=== PATIENT | male | born 1930 | race Caucasian/White ===

== ENCOUNTER → 2017-09-12 | Outpatient (CLI) | payer MEDICARE, OTHER ==
[~2017-09-12] MED LIST: ADULT LOW DOSE81 MG PO; CENTRUM COMPLE1 EACH PO; CIPROFLOXACIN500 M1 PO; COZAAR100 MG PO; DILTIAZEM 24HR240 M1 PO; FAMCICLOVIR500 MG PO; FOLIC ACID1 MG PO; HYDROCODONE-AP1 EAC6 PO; LEVAQUIN 250 M250 MG PO; LOSARTAN; NEXIUM5 MG; PREDNISONE 20 M20 MG PO; SODIUM BICARBO650 M3 PO; SUPER B COMPLE150 MG PO; ZANTAC 150MG T150 M1 PO; [UNRECOGNIZED DRUG - REMARK]
[2017-09-12 12:05] VITALS: BP 166/59
[2017-09-12 12:18] LABS: HEMATOCRIT 29.2 % (42.0-52.0); HEMOGLOBIN 9.3 gm/dL (14.0-18.0)
[2017-09-12 13:08] VITALS: BP 163/63
--- NOTE | 2017-09-12 18:12 | NUR ---
ARRIVED AMBULATORY. MADE SELF COMFORTABLE IN RECLINER. DENIES ADVERSE REACTION TO MULTIPLE INJECTIONS OF SAME. INJECTION COMPLETED AND TOLERATED WELL. DENIES NEEDS AT DISCHARGE.
== END ==
LOC: M.INFUS 11:55
PROVIDERS: Internal Medicine Nephrology
DX: N18.4 Chronic kidney disease, stage 4 (severe) (principal); D63.1 Anemia in chronic kidney disease

== ENCOUNTER → 2017-09-26 | Outpatient (CLI) | payer MEDICARE, OTHER ==
[2017-09-26 12:15] VITALS: BP 160/59
--- NOTE | 2017-09-26 12:38 | NUR ---
ARRIVED AMUBLATORY. MADE SELF COMFORTABLE. DENIES ADVERSE REACTION TO PRIOR INJECTION OF SAME. PER STANDING ORDER NO LABS NEEDED TODAY. INJECTION COMPLETED AND TOLERATED WELL. DENIES QUESTIONS OR NEEDS AT DISCHARGE.
== END ==
LOC: M.INFUS 04:47
DX: N18.4 Chronic kidney disease, stage 4 (severe) (principal); D63.1 Anemia in chronic kidney disease

== ENCOUNTER → 2017-10-10 | Outpatient (CLI) | payer MEDICARE, OTHER ==
[2017-10-10 12:16] VITALS: BP 150/44
--- NOTE | 2017-10-10 12:40 | NUR ---
ARRIVED AMBULATORY. MADE SELF COMFORTABLE IN RECLINER. MONTHLY LAB DRAWN AND RESULTS REVIEWED. CRITERIA MET FOR PROCRIT INJECTION. INJECTION COMPLETED AND TOLERATED WELL. DENEIS NEEDS AT DISCHARGE.
== END ==
LOC: M.INFUS 05:58
DX: N18.4 Chronic kidney disease, stage 4 (severe) (principal); D63.1 Anemia in chronic kidney disease

== ENCOUNTER → 2017-10-24 | Outpatient (CLI) | payer MEDICARE, OTHER ==
[2017-10-24 11:30] VITALS: BP 148/77
--- NOTE | 2017-10-24 15:31 | NUR ---
INJECTION OF 20,000 UNITS COMPLETED AND TOLERATED WELL.
== END ==
LOC: M.INFUS 05:43
DX: N18.4 Chronic kidney disease, stage 4 (severe) (principal); D63.1 Anemia in chronic kidney disease

== ENCOUNTER → 2017-11-07 | Outpatient (CLI) | payer MEDICARE, OTHER ==
[2017-11-07 11:38] VITALS: BP 171/66
== END ==
LOC: M.INFUS 06:06
DX: N18.4 Chronic kidney disease, stage 4 (severe) (principal); D63.1 Anemia in chronic kidney disease

== ENCOUNTER → 2017-11-21 | Outpatient (CLI) | payer MEDICARE, OTHER ==
[2017-11-21 11:15] VITALS: BP 182/61
--- NOTE | 2017-11-21 13:59 | NUR ---
ARRIVED AMBULATORY. MADE SELF COMFORTABLE IN RECLINER. MONTHLY LAB DRAWN AND RESULTS REVIEWED. PER STANDING ORDER DOSE INCREASE OF 25% NEEDED. INJECTION OF NEW DOSE OF 31.250 UNITS INJECTED IN 3 EQUAL DEVIDED DOSES TO BACK OF RIGHT UPPER ARM. REFUSED INJECTION TO LEFT ARM STATING HE ONLY WANTED ONE SORE ARM. INJECTION COMPLETED ADN TOLERATED WELL. DENIES QUESTIONS OR NEEDS AT DISCHARGE.
== END ==
LOC: M.INFUS 01:32
DX: N18.4 Chronic kidney disease, stage 4 (severe) (principal); D63.1 Anemia in chronic kidney disease

== ENCOUNTER → 2017-12-05 | Outpatient (CLI) | payer MEDICARE, OTHER ==
[2017-12-05 13:00] VITALS: BP 155/87
--- NOTE | 2017-12-05 14:26 | NUR ---
PT ARRIVED TO PRE-OP UNEXPECTEDLY. GOT HIM REGISTERED, THEN BLOOD DRAWN. ONCE RESULTS OBTAINED, AND ORDER FOR PROCRIT PROCESSED. HIS INJECTIONS WERE GIVEN, 39,000 UNITS GIVEN SQ.
== END ==
LOC: M.INFUS 12:56
DX: N18.4 Chronic kidney disease, stage 4 (severe) (principal); D63.1 Anemia in chronic kidney disease

== ENCOUNTER → 2017-12-19 | Outpatient (CLI) | payer MEDICARE, OTHER ==
--- NOTE | 2017-12-19 12:20 | NUR ---
PT ARRIVED TO UNIT TO RECEIVE HIS PROCRIT WHICH WAS GIVEN WITHOUT COMPLICATION. DC'ED HOME AT THIS TIME.
== END ==
LOC: M.INFUS 01:30
DX: N18.4 Chronic kidney disease, stage 4 (severe) (principal); D63.1 Anemia in chronic kidney disease

== ENCOUNTER → 2018-01-02 | Outpatient (CLI) | payer MEDICARE, OTHER ==
[2018-01-02 12:20] VITALS: BP 122/57
== END ==
LOC: M.INFUS 01:27
DX: N18.4 Chronic kidney disease, stage 4 (severe) (principal); D63.1 Anemia in chronic kidney disease

== ENCOUNTER → 2018-01-12 | Outpatient (CLI) | payer MEDICARE, OTHER ==
[2018-01-12 10:17] LABS: CREATININE 3.2 mg/dL (0.6-1.3)
== END ==
LOC: M.ULTRA 01-06 09:01 → M.LAB 09:26 → M.ULTRA 10:30
DX: I65.23 Occlusion and stenosis of bilateral carotid arteries (principal); G31.9 Degenerative disease of nervous system, unspecified; E04.2 Nontoxic multinodular goiter; N18.3 Chronic kidney disease, stage 3 (moderate); R41.89 Other symptoms and signs involving cognitive functions and awareness

== ENCOUNTER → 2018-01-16 | Outpatient (CLI) | payer MEDICARE, OTHER ==
[2018-01-16 12:30] VITALS: BP 167/62
--- NOTE | 2018-01-16 12:43 | NUR ---
ASSUMED CARE OF PATIENT THIS AFTERNOON FROM HOME. HE IS DOING WELL WITH NO CO OF PAIN OR NAUSEA AT THIS TIME. PT WAS EDUCATED ON PLAN OF CARE AND DISEASE PROCESS, WILL CONTINUE TO MONITOR.
== END ==
LOC: M.INFUS 01:16
DX: I12.9 Hypertensive chronic kidney disease with stage 1 through stage 4 chronic kidney disease, or unspecified chronic kidney disease (principal); N18.4 Chronic kidney disease, stage 4 (severe); D63.1 Anemia in chronic kidney disease

== ENCOUNTER → 2018-01-30 | Outpatient (CLI) | payer MEDICARE, OTHER ==
--- NOTE | 2018-01-30 12:18 | NUR ---
ARRIVED AMBULATORY. MADE SELF COMFORTABLE IN CHAIR. HGB OBTAINED AND SENT TO LAB. DENIES ADVERSE REACTIONS TO MULTIPLE INJECTIONS OF SAME. INJECTIONS COMPLETED AND TOLERATED WELL. HGB AT 10.3, SO PROCRIT DOSE STAYED THE SAME LAST INJECTION 48,750 UNITS. DENIES NEEDS AT DISCHARGE.
[2018-01-30 12:21] VITALS: BP 169/53
== END ==
LOC: M.INFUS 05:44
DX: N18.4 Chronic kidney disease, stage 4 (severe) (principal); D63.1 Anemia in chronic kidney disease

== ENCOUNTER → 2018-02-13 | Outpatient (CLI) | payer MEDICARE, OTHER ==
[2018-02-13 12:49] VITALS: BP 177/67
--- NOTE | 2018-02-13 13:07 | NUR ---
PT HERE FOR OUTPT TREATMENT. SETTLED INTO RECLINER. LABS REVIEWED. MEDICATION ADMINISTERED PER ORDERS. PT TOLERATED WELL. DISMISSED HOME IN GOOD CONDITION VIA AMBULATORY, STEADY GAIT.
== END ==
LOC: M.INFUS 01:59
DX: N18.4 Chronic kidney disease, stage 4 (severe) (principal); D63.1 Anemia in chronic kidney disease

== ENCOUNTER → 2018-02-27 | Outpatient (CLI) | payer MEDICARE, OTHER ==
--- NOTE | 2018-02-27 11:25 | NUR ---
ARRIVED AMBULATORY. MADE SELF COMFORTABLE IN RECLINER. HGB OBTAINED AND SENT TO LAB. DENIES ADVERSE REACTIONS TO MULTIPLE INJECTIONS OF SAME. INJECTIONS COMPLETED AND TOLERATED WELL. HGB AT 10.9, SO PROCRIT DOSE STAYED THE SAME LAST INJECTION 48,750 UNITS. DENIES NEEDS AT DISCHARGE. AMBULATORY, GAIT STEADY.
[2018-02-27 11:50] VITALS: BP 170/64
== END ==
LOC: M.INFUS 00:23
DX: N18.4 Chronic kidney disease, stage 4 (severe) (principal); D63.1 Anemia in chronic kidney disease

== ENCOUNTER → 2018-03-13 | Outpatient (CLI) | payer MEDICARE, OTHER ==
[2018-03-13 12:58] VITALS: BP 180/64
--- NOTE | 2018-03-13 13:20 | NUR ---
NO LABS NEEDED. CONTINUE SAME DOSE LAST GIVEN OF 48,750. DEVIDED INTO 2 DOSES AND GIVEN ONE EACH ARM. TOLERAETD WELL. DENEIS ADVERSE REACTION TO PRIOR INJECTIOS OF SAME. DENEIS NEEDS AT DISCHARGE.
== END ==
LOC: M.INFUS 06:02
DX: N18.4 Chronic kidney disease, stage 4 (severe) (principal); D63.1 Anemia in chronic kidney disease

== ENCOUNTER → 2018-03-27 | Outpatient (CLI) | payer MEDICARE, OTHER ==
[2018-03-27 13:05] VITALS: BP 132/75
--- NOTE | 2018-03-27 13:26 | NUR ---
MONTHLY LAB DRAW. RESULTS EVALUATED AND PT TO MAINTAINE SAME DOSE OF PROCRIT LAST GIVE. PT UPDATED, VOICED UNDERSTANDING AND AGREED. GIVEN 2 INJECTIONS. TOLERATED WELL. DENIES NEEDS AT DISCHARGE.
== END ==
LOC: M.INFUS 03:44
DX: N18.4 Chronic kidney disease, stage 4 (severe) (principal); D63.1 Anemia in chronic kidney disease

== ENCOUNTER → 2018-04-10 | Outpatient (CLI) | payer MEDICARE, OTHER ==
[2018-04-10 13:12] VITALS: BP 155/61
--- NOTE | 2018-04-10 13:12 | NUR ---
PT ARRIVED VIA AMBULATORY, ESCORTED BY FRIEND, SETTLED SELF INDEPENDENTLY INTO RECLINER. PROCRIT INJECTIONS TO LEFT ARM SUBCUTANEOUS TISSUE. TOLERATED WELL. DISMISSED HOME IN GOOD CONDITION.
== END ==
LOC: M.INFUS 01:40
DX: N18.4 Chronic kidney disease, stage 4 (severe) (principal); D63.1 Anemia in chronic kidney disease

== ENCOUNTER → 2018-04-24 | Outpatient (CLI) | payer MEDICARE, OTHER ==
[2018-04-24 12:50] VITALS: BP 177/69
--- NOTE | 2018-04-24 14:24 | NUR ---
ARRIVED AMBULATORY. MADE SELF COMFORTABLE. DENEIS ADVERSE REACTION TO PRIOR INJECTION OF SAME. MONTHLY HGB DRAWN PER ORDER. HGB RESULTS BACK AT 10.9 PER TITRATION SCHEDULE UNCLEAR IF TO HOLD OR GIVE. CALL PLACED TO DR. BURNHAM. CLAUDIA WOODARD IN OFFICE PROCRIT TO BE GIVEN AT SAME DOSE LAST ONE. PROCRIT INJECTED IN 2 INJECTIONS TO BACK OF RIGHT ARM. TOLERATED WELL. DENIES NEEDS OR QUESTIONS AT DISCHARGE.
== END ==
LOC: M.INFUS 01:50
DX: N18.4 Chronic kidney disease, stage 4 (severe) (principal); D63.1 Anemia in chronic kidney disease

== ENCOUNTER → 2018-05-08 | Outpatient (CLI) | payer MEDICARE, OTHER ==
[2018-05-08 12:05] VITALS: BP 188/70
--- NOTE | 2018-05-08 13:19 | NUR ---
ARRIVED AMBULATORY. MADE SELF COMFORTABLE IN RELCINER. DENIES ADVERSE REACTION TO PRIOR INJECTIONS OF SAME. INJECTION OF 48,750 UNITS COMPLETED AND TOLERATED WELL. DENIES NEEDS AT DISCHARGE.
== END ==
LOC: M.INFUS 02:21
DX: N18.4 Chronic kidney disease, stage 4 (severe) (principal); D63.1 Anemia in chronic kidney disease

== ENCOUNTER → 2018-05-22 | Outpatient (CLI) | payer MEDICARE, OTHER ==
--- NOTE | 2018-05-22 12:32 | NUR ---
ARRIVED AMBULATORY. MADE SELF COMFORTABLE IN RECLINER. PRE INJECTION LABS DRAWN. LAB RESULTS EVALUATED AND HGB NOTED TO BE TO HIGH FOR PROCRIT INJECTION TODAY PER STANDIGN ORDER. PT UPDATED. VOICED UNDERSTANDING AND STATED HE HAS BEEN FEELING BETTER. DENIES QUESTIONS OR NEEDS AT DISCHARGE.
== END ==
LOC: M.INFUS 02:51
DX: N18.4 Chronic kidney disease, stage 4 (severe) (principal); D63.1 Anemia in chronic kidney disease

== ENCOUNTER → 2018-06-05 | Outpatient (CLI) | payer MEDICARE, OTHER | LOC: M.INFUS 04:56 | DX: N18.4 Chronic kidney disease, stage 4 (severe) (principal); D63.1 Anemia in chronic kidney disease ==

== ENCOUNTER → 2018-06-19 | Outpatient (CLI) | payer MEDICARE, OTHER ==
--- NOTE | 2018-06-19 13:34 | NUR ---
ARRIVED AMBULATORY WITH . MADE SELF COMFORTABLE IN RECLINER. LABS DRAWN PER ORDER. PER STANDING ORDER TITRATION. 48,750 UNITS PROCRIT GIVEN. TOLERATED WELL. DENIES NEEDS OR QUESTIONS AT DISCHARGE.
== END ==
LOC: M.INFUS 05:02
DX: N18.4 Chronic kidney disease, stage 4 (severe) (principal); D63.1 Anemia in chronic kidney disease

== ENCOUNTER → 2018-07-03 | Outpatient (CLI) | payer MEDICARE, OTHER ==
--- NOTE | 2018-07-03 13:28 | NUR ---
ARRIVED AMUBLATORY. MADE SELF COMFORTABLE. PRE INJECTION LABS DRAWN. LAB RESULTS EVALUATED AND NO PROCRIT NEEDED PER STANDING ORDER. PT UPDATED. VOICED UNDERSTANDING AND AGREED. DENIES NEEDS AT DISCHARGE.
== END ==
LOC: M.INFUS 05:22
DX: N18.4 Chronic kidney disease, stage 4 (severe) (principal); D63.1 Anemia in chronic kidney disease

== ENCOUNTER → 2018-07-17 | Outpatient (CLI) | payer MEDICARE, OTHER ==
[2018-07-17 13:45] VITALS: BP 138/82
--- NOTE | 2018-07-17 14:02 | NUR ---
ARRIVED AMBULATORY. MADE SELF COMFORTABLE IN RECLINER. LAB DRAWN AND RESULTS EVALUATED. PT MEETS CRITERIA FOR INJECTION AT 25% REDUCTION PER STANDING ORDER AND TITRATION. INJECTION COMPLETED AND TOLERATED WELL. DENIES ADVERSE REACTION TO MULTIPLE INJECTIONS OF SAME. REPORT THAT HE IS STOPPING HIS ORAL CHEMO BUT WILL CONTINUE PROCRIT A SLONG NEEDED. DENIES NEEDS AT DISHCARGE.
== END ==
LOC: M.INFUS 00:37
DX: N18.4 Chronic kidney disease, stage 4 (severe) (principal); D63.1 Anemia in chronic kidney disease

== ENCOUNTER → 2018-07-29 | Outpatient (CLI) | payer MEDICARE, OTHER ==
[2018-07-29 12:40] VITALS: BP 182/66
--- NOTE | 2018-07-29 13:13 | NUR ---
NEW ORDERING DOCTOR NOTED. NO LABS NEEDED BASED ON MONTHLY DRAW SCHEDULE. INJECTION COMPLETED AND TOLERATED WELL. DENIES QUESTIONS OR NEEDS AT DISCHARGE.
== END ==
LOC: M.INFUS 08:20
DX: N18.4 Chronic kidney disease, stage 4 (severe) (principal); D63.1 Anemia in chronic kidney disease

== ENCOUNTER → 2018-08-14 | Outpatient (CLI) | payer MEDICARE, OTHER ==
[2018-08-14 12:00] VITALS: BP 157/82
[2018-08-14 12:56] LABS: HEMATOCRIT 32.4 % (42.0-52.0); HEMOGLOBIN 10.4 gm/dL (14.0-18.0)
== END ==
LOC: M.INFUS 04:30
DX: N18.4 Chronic kidney disease, stage 4 (severe) (principal); D63.1 Anemia in chronic kidney disease

== ENCOUNTER → 2018-08-28 | Outpatient (CLI) | payer MEDICARE, OTHER ==
[2018-08-28 12:40] VITALS: BP 147/80
== END ==
LOC: M.INFUS 03:47
DX: N18.4 Chronic kidney disease, stage 4 (severe) (principal); D63.1 Anemia in chronic kidney disease

== ENCOUNTER → 2018-09-11 | Outpatient (CLI) | payer MEDICARE, OTHER ==
[2018-09-11 12:54] LABS: HEMATOCRIT 30.6 % (42.0-52.0); HEMOGLOBIN 9.5 gm/dL (14.0-18.0)
[2018-09-11 13:15] VITALS: BP 162/74
== END ==
LOC: M.INFUS 12:29
DX: N18.4 Chronic kidney disease, stage 4 (severe) (principal); D63.1 Anemia in chronic kidney disease

== ENCOUNTER → 2018-09-25 | Outpatient (CLI) | payer MEDICARE, OTHER ==
[~2018-09-25] MED LIST changes: +ARICEPT10 M1 PO; +BENADRYL25 MG PO; +IRON325 PO; +NAMENDA 5 MG TAB5 M1 PO; +VITAMIN B-121000 MCG PO
[2018-09-25 12:24] VITALS: BP 158/78
--- NOTE | 2018-09-25 12:28 | NUR ---
ARRIVED AMBULATORY. MADE SELF COMFORTABLE. PER STANDING ORDER SAME DOSE OF 23,750 UNITS ADMINISTED AND TOLRATED WELL. DENIES QUESTIONS OR NEEDS AT DISCHARGE.
== END ==
LOC: M.INFUS 05:42
DX: N18.4 Chronic kidney disease, stage 4 (severe) (principal); D63.1 Anemia in chronic kidney disease

== ENCOUNTER → 2018-10-09 | Outpatient (CLI) | payer MEDICARE, OTHER ==
[~2018-10-09] MED LIST changes: -ARICEPT10 M1 PO; -BENADRYL25 MG PO; -IRON325 PO; -NAMENDA 5 MG TAB5 M1 PO; -VITAMIN B-121000 MCG PO
[2018-10-09 12:46] LABS: HEMATOCRIT 33.7 % (42.0-52.0); HEMOGLOBIN 10.6 gm/dL (14.0-18.0)
[2018-10-09 13:10] VITALS: BP 142/78
--- NOTE | 2018-10-09 13:43 | NUR ---
DENIES ADVERSE REACTION TO MULTIPLE PRIOR INJECTIONS OF SAME INJECTION COMPLETED AND TOERATED WELL. AT CHAIRSIDE. DENEIS NEEDS AT DISCHARGE.
== END ==
LOC: M.INFUS 03:25
DX: N18.4 Chronic kidney disease, stage 4 (severe) (principal); D63.1 Anemia in chronic kidney disease

== ENCOUNTER → 2018-10-26 | Outpatient (CLI) | payer MEDICARE, OTHER ==
[~2018-10-26] MED LIST changes: +ARICEPT10 M1 PO; +BENADRYL25 MG PO; +IRON325 PO; +NAMENDA 5 MG TAB5 M1 PO; +VITAMIN B-121000 MCG PO
[2018-10-26 12:40] VITALS: BP 134/78
--- NOTE | 2018-10-26 13:11 | NUR ---
ARRIVED AMBULATORY. MADE SELF COMFORTABLE IN RECLINER. PT NOT DUE FOR LABS THIS VISIT. LAST HGB ON 10/09/18 WAS 10.6. SAME DOSE OF 23,750 UNITS LAST GIVEN DUE. INJECTION COMPLETED AND TOLRATED WELL. DENIES NEEDS AT DISCHARGE.
== END ==
LOC: M.INFUS 10-23 05:04
DX: N18.4 Chronic kidney disease, stage 4 (severe) (principal); D63.1 Anemia in chronic kidney disease

== ENCOUNTER 2018-10-27 05:12 | Inpatient (IN) | payer MEDICARE, OTHER ==
[~2018-10-27] VITALS: Ht 165.1 cm; Wt 59.4 kg
--- NOTE | ~2018-10-27 | CON ---
[address] [address] CONSULTATION Name: ERIC DILL Room: [address] IN M.R.#: [id number] Admission: 10/27/18 Attend Phys: Heraclio Ramos MD Discharge: Date of : [birth year] Report #: [id number] THIS REPORT FOR: //name// CC: Geovanni Ramos DATE OF SERVICE: 10/27/2018 REQUESTING PHYSICIAN: Heraclio Ramos MD REASON FOR CONSULTATION: Assessment of a patient with chronic kidney disease, now progressing to end-stage. HISTORY OF PRESENT ILLNESS: The patient is a very pleasant 88-year-old gentleman who had been followed with my partner, Dr. Sharp and has progressive renal disease in the past. He consider dialysis attendant renal education class understanding that he was going to do chronic dialysis, but recently after more conversation with Dr. Sharp and Dr. Howard, he decided that dialysis is not for him. So presented to the Emergency Room, he was brought by his because he became a little more delirious and disoriented and there were no labs were checked and it was found that his creatinine is up to 12. His blood gas revealed pH of 7.076, his hemoglobin was 95, white count 25,000. PAST MEDICAL HISTORY: 1. 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 2. History of dementia. 3. Hypertension. 4. Coronary artery disease. FAMILY HISTORY: Noncontributory. SOCIAL HISTORY: No current tobacco or alcohol abuse. He has a very supportive . REVIEW OF SYSTEMS: Not reliable due to his delirious and confusion. PHYSICAL EXAMINATION: GENERAL: He is awake, he is oriented. VITAL SIGNS: Blood pressure 125/58, heart rate is 98. Afebrile. HEENT: Pupils are round. NECK: Elevated JVD. LUNGS: With coarse breath sounds. CARDIOVASCULAR: Regular rate. ABDOMEN: [place] [address] CONSULTATION Name: ERIC DILL Gallo Room: [address] IN [facility]#: [id number] Admission: 10/27/18 Attend Phys: Heraclio Ramos MD Discharge: Date of : [birth year] Report #: [id number] LOWER EXTREMITIES: No edema. LABORATORY REPORT: As I mentioned earlier. ASSESSMENT: An 88-year-old man with progressive renal disease, now reaching end stage. His creatinine is 12. GFR his 4. He has metabolic acidosis due to renal failure. His arterial pH is 7.076. He also has some leukocytosis. The patient's family decided dialysis ____. I agree with their decision because of his age and physical performance. PLAN: We make sure that he is not suffering and will ask for a hospice care to take care of him. I will sign off. By: [id number] Jazmin Martinez MD /rosi
[~2018-10-27 05:12] MED LIST changes: -ARICEPT10 M1 PO; -BENADRYL25 MG PO; -IRON325 PO; -NAMENDA 5 MG TAB5 M1 PO; -VITAMIN B-121000 MCG PO
[2018-10-27 05:16] VITALS: BP 112/35
[2018-10-27] MEDS ORDERED: NAMENDA 5 MG TAB5 M1 PO (05:26)
[2018-10-27] MEDS ORDERED: ARICEPT10 M1 PO (05:26)
[2018-10-27] MEDS ORDERED: BENADRYL25 MG PO (05:27)
[2018-10-27] MEDS ORDERED: IRON325 PO (05:27)
[2018-10-27 05:42] LABS: MPV 9.3 fl. (7.2-11.1); NUCLEATED RBCS 0 /100WBC; PLATELET COUNT* 304 thou/uL (150-400)
[2018-10-27 05:45] LABS: HEMATOCRIT 31.4 % (42.0-52.0); HEMOGLOBIN 9.5 gm/dL (14.0-18.0); MCH 29.7 pg (26.0-34.0); MCHC 30.4 g/dL (28.0-37.0); MCV 97.8 fL (80.0-100.0); RBC 3.21 mil/uL (4.50-6.00); WBC 22.7 thou/uL (4.0-11.0)
[2018-10-27 05:50] LABS: ANION GAP 27 mmol/L (7-16); BUN 112 mg/dL (7-18); CALCIUM 6.2 mg/dL (8.5-10.1); CHLORIDE 111 mmol/L (98-107); GLUCOSE 202 mg/dL (70-99); POTASSIUM 5.4 mmol/L (3.5-5.1); SODIUM 145 mmol/L (136-145)
[2018-10-27 05:54] LABS: INR 1.3; PROTIME 13.4 Seconds (9.20-11.50)
[2018-10-27 06:02] LABS: ALBUMIN 2.7 g/dL (3.4-5.0); ALKALINE PHOSPHATASE 90 U/L (46-116); NT-PRO BRAIN NAT PEPTIDE > 35000 pg/mL (<300); SGOT 10 U/L (15-37); SGPT 8 U/L (30-65); TOTAL BILIRUBIN 0.3 mg/dL (<0.1-1.0); TOTAL PROTEIN 7.2 g/dL (6.4-8.2); TROPONIN-I LEVEL 0.59 ng/mL (<0.06)
[2018-10-27 06:03] LABS: CO2 7 mmol/L (21-32)
[2018-10-27 06:27] LABS: ABSOLUTE LYMPHOCYTES 0.7 thou/uL (0.8-5.3); ABSOLUTE MONOCYTES 1.1 thou/uL (0.0-1.2); ABSOLUTE NEUTROPHILS 20.9 thou/uL (1.6-8.1)
[2018-10-27 06:28] LABS: ANISOCYTOSIS 1+
[2018-10-27 06:28] LABS: BE -23.4 mmol/L (-2 to +3); PO2 99.1 mmHg (75.0-100.0)
[2018-10-27 06:29] LABS: PLATELET ESTIMATE ADEQUATE
[2018-10-27 06:40] LABS: pH 7.076 (7.340-7.450)
[2018-10-27 06:42] LABS: PCO2 < 17.0 mmHg (35.0-45.0)
[2018-10-27 08:18] VITALS: BP 125/58
--- NOTE | 2018-10-27 09:48 | EKG ---
[place] [address] ELECTROCARDIOGRAM REPORT Name: ERIC DILL Room: [address] ADM IN .R.#: [id number] Admission: 10/27/18 Attend Phys: Heraclio Ramos MD Discharge: Date of : [birth year] Report #: [id number] THIS REPORT FOR: //name// [facility] ED Test Date: 2018-10-27 Test Time: 05:36:22 Pat Name: ERIC DILL Department: Room: [facility] Gender: M Calciner Feeder: : [id number] Requested By: Amanda Dick Order Number: [id number] MD: Garry Toney Measurements Intervals [place] Rate: 98 P: 0 DC: 100 QRS: -63 QRSD: 141 T: 111 QT: 444 QTc: 568 Interpretive Statements Sinus rhythm Short DC interval Consider right atrial enlargement Left bundle branch block Compared to ECG 09/30/2015 07:58:15 Short DC interval now present Left bundle-branch block now present Electronically Signed On 10-27-2018 9:48:41 SALES ENGAGEMENT MANAGER by Garry Toney [email or web address] <ELECTRONICALLY SIGNED> By: Garry Toney MD, [facility] 10/27/18 0948 [id number] Garry Toney MD, [facility] /EPI
[2018-10-27 11:02] VITALS: BP 105/46
[2018-10-27] MEDS ORDERED: VITAMIN B-121000 MCG PO (11:22)
--- NOTE | 2018-10-27 12:25 | NUR ---
Pt A&O, newly diagnosed dementia. in room. Pt had been fairly independent at home. No DME. Spoke with , plan for Pt to admit to hospice at dc. ADRIEL spoke with Pt and , wants Pt to return home. ADRIEL contacted Tori with [facility], Tori to be here around 1pm to complete info visit. Plan dc to home with hospice tomorrow. Following.
--- NOTE | 2018-10-27 15:31 | NUR ---
PT ADMITTED TO UNIT AROUND 0900 PT IS ALERT AND ORIENTED X 2 PT IS CONFUSED HAS WEAKNESS, PT DENIES PAIN OR SOA, PT IS UP WITH ASSIST X 1 PT IS A FALL RISK BED ALARM IS ON, PT IS ST ON THE MONITOR, PT SEEN BY NEPHROLOGY PT NOT A PROPER CANIDATE FOR DIALYSIS HOSPICE CONSULTED SAW PT AND FAMILY PT WILL DISCHARGE TOMORROW WITH HOSPICE IS PT CARE PLAN, PT PROGRESSING TOWARDS GOALS, WILL CONTINUE TO MONITOR
[2018-10-27 17:00] VITALS: BP 117/51
[2018-10-27 20:00] VITALS: BP 92/41
--- NOTE | 2018-10-28 07:56 | NUR ---
RECEIVED REPORT AND ASSUMED CARE AT 1900. BP 92/41 HR 98 RR 30 T 98.3 O2 98% RA. ASSESSMENT COMPLETED CHARTED. PT APPEARED RESTLESS, ANXIOUS, AND CONFUSED. VISIBLY LABORED BREATHING. CARDIAC MONITORING IN PLACE, FAMILY BEDSIDE. PT TRACING SR-ST 96-103 ON DYE OPERATOR. PLAN FOR HOME WITH HOSPICE 10/28/18. AT 2008 PT HR DECREASED FROM 99 TO 78. AT 2010 HR DECREASED FROM 70'S TO 30'S. PT ASSESSED BY NURSING, LABORED BREATHING, UNABLE TO RESPOND TO VERBAL QUEUES. PRN ANXIETY MEDICATION ADMIN PER ORDERS. DISCUSSED WITH FAMILY. FAMILY ( SON, DAUGHTER PRESENT, OTHER DAUGHTER ON SPEAKER PHONE) AGREE ON PRN MEDICATION BENEFITS. PT REMAINED HR 20-30'S UNTIL ASYSTOLE ON CARDIAC MONITORING. TOD 2109, VERIFIED AND PRONOUNCED BY TWO RN'S. FAMILY NOTIFIED. MOLD UNLOADER PHYSICIAN, CONSULTED PHYS, MTN, PATIENT'S PCP NOTIFIED. SUPPLY COORDINATOR NOTIFIED, SUMMARY COMPLETED. HOME NOTIFIED AND TRANSPORTATION ARRANGED. PT BELONGINGS GATHERED AND SENT HOME WITH FAMILY. PT BATHED PRE TRANSPORT. FAMILY NOTIFIED ON TRANSPORT. HOSPICE NOTIFIED OF PATIENT PASSING TO [facility] FOR THE MORNING.
== END 2018-10-27 23:00 | DRG 682 ==
LOC: M.ERS 05:12 → M.TBA-ER 06:36 → M.2W 06:36 → M.TBA-ER 07:48 → M.2W 08:30
PROVIDERS: Emergency Medicine; ADMIT Family Medicine
DX: I12.0 Hypertensive chronic kidney disease with stage 5 chronic kidney disease or end stage renal disease (principal); N18.6 End stage renal disease; E87.2 Acidosis; I25.10 Atherosclerotic heart disease of native coronary artery without angina pectoris; D72.829 Elevated white blood cell count, unspecified; Z51.5 Encounter for palliative care; F03.90 Unspecified dementia, unspecified severity, without behavioral disturbance, psychotic disturbance, mood disturbance, and anxiety; Z88.6 Allergy status to analgesic agent; Z88.1 Allergy status to other antibiotic agents; Z88.8 Allergy status to other drugs, medicaments and biological substances; Z79.899 Other long term (current) drug therapy; Z98.42 Cataract extraction status, left eye; Z98.41 Cataract extraction status, right eye; Z85.46 Personal history of malignant neoplasm of prostate; Z87.19 Personal history of other diseases of the digestive system; Z95.1 Presence of aortocoronary bypass graft; Z87.891 Personal history of nicotine dependence